=== PATIENT | female | born 1980 | race Caucasian/White ===

== ENCOUNTER 2018-03-26 19:38 | Emergency (ER) | payer MEDICAID, OTHER ==
[~2018-03-26] VITALS: Ht 160 cm; Wt 99.8 kg
[~2018-03-26 19:38] MED LIST: SYN.075
[2018-03-26 19:44] VITALS: BP 143/80
--- NOTE | 2018-03-26 19:49 | NUR ---
pt ambulated to bed 11 with vss. providing urine.
--- NOTE | 2018-03-26 19:58 | NUR ---
PT TO ED WITH C/O L THUMB PAIN AND SWELLING. PT DENIES INJURY OR TRAUMA TO THUMB. 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 PT PLACED INTO BED, PENDING MD MENDOZA. PMH--DENIES RX--DENIES
--- NOTE | 2018-03-26 20:03 | NUR ---
RAD AT BEDSIDE.
[2018-03-26] MEDS ORDERED: IBUPROFEN 600 MG TAB PO ONE (20:10)
--- NOTE | 2018-03-26 21:05 | NUR ---
Patient discharged with v/s stable. Written and verbal after care instructions given and explained. Patient alert, oriented and verbalized understanding of instructions. Ambulatory with steady gait. All questions addressed prior to discharge. ID band removed. Patient advised to follow up with PMD. Rx of KEFLEX, IBUPROFEN given. Patient educated on indication of medication including possible reaction and side effects. Opportunity to ask questions provided and answered.
[2018-03-26 21:09] VITALS: BP 139/74
== END 2018-03-26 21:05 | disposition home or self-care (01) ==
LOC: MED 19:38
DX: S63.602A Unspecified sprain of left thumb, initial encounter (principal); E07.9 Disorder of thyroid, unspecified; Z79.899 Other long term (current) drug therapy; X58.XXXA Exposure to other specified factors, initial encounter; Y93.89 Activity, other specified; Y92.89 Other specified places as the place of occurrence of the external cause; Y99.8 Other external cause status
CPT/HCPCS: 73130; 81025; 99283; Q0092

== ENCOUNTER 2020-06-13 18:33 | Emergency (ER) | payer OTHER ==
[~2020-06-13] VITALS: Ht 162.6 cm; Wt 96.2 kg
[2020-06-13 18:39] VITALS: BP 140/83
--- NOTE | 2020-06-13 18:44 | NUR ---
Pt ambulated to ER bed 9.
--- NOTE | 2020-06-13 18:52 | NUR ---
40 Y/O FEMALE C/O VAGINAL/PELVIC PAIN 11/02 DESCRIBES PRESSURE AND CRAMPING RADIATING TO LEFT FLANK X5DAYS. BRUISING NOTED TO LEFT FLANK. PT STATES SHE HAD APPOINTMENT AT [facility] IN [place] FOR PAP SMEAR AND THE DOCTOR STATED HE COULD NOT FIND HER CERVIX. PT STATES HE CONTINUED TO CHANGE HIS SPECULUMS TO DIFFERENT SIZES AND SINCE THEN HAS HAD INCREASED PAIN. PT STATES WHEN HAVING A BOWEL MOVEMENT PAIN IS WORSE AND HAS NOTICED BILATERAL FEET SWELLING NON-PITTING +1. PT DENIES N/V, DENIES FEVER/CHILLS. DENIES PMH NKA
--- NOTE | 2020-06-13 19:01 | NUR ---
Dr. Rosenthal at pt bedside for further evaluation.
--- NOTE | 2020-06-13 19:08 | NUR ---
Gave report to NICOLE Maier and NICOLE Craig. Transfer of care at this time.
--- NOTE | 2020-06-13 19:09 | NUR ---
RECEIVED REPORT FROM NICOLE MORA FOR CONTINUITY OF CARE
--- NOTE | 2020-06-13 19:10 | NUR ---
Patient appears to be resting comfortably in bed. Vital Signs within normal limits. Respirations even and unlabored. AOx4, sitting semi fowlers, and trace ble. pt is okay with motrin for pain; md notified.
[2020-06-13] MEDS ORDERED: IBUPROFEN 600 MG TAB PO ONE (19:15)
--- NOTE | 2020-06-13 19:35 | NUR ---
blood handed to kailee bella
[2020-06-13 19:43] LABS: BASOPHILS % (AUTO) 0.3 % (0.0-2.0); EOSINOPHILS # (AUTO) 0.2 K/uL (0-0.4); EOSINOPHILS % (AUTO) 1.6 % (0.0-4.0); HEMATOCRIT 36.2 % (36-48); HEMOGLOBIN 12.2 g/dL (12.0-16.0); LYMPHOCYTES # (AUTO) 3.4 K/uL (2.5-16.5); LYMPHOCYTES % (AUTO) 33.2 % (20.5-51.1); MEAN CORPUSCULAR HEMOGLOBIN 30 pg (27-31); MEAN CORPUSCULAR HGB CONC 34 g/dL (33-37); MEAN CORPUSCULAR VOLUME 88.5 fL (80-94); MONOCYTES # (AUTO) 0.7 K/uL (0.8-1.0); MONOCYTES % (AUTO) 7.2 % (1.7-9.3); NEUTROPHILS # (AUTO) 5.9 K/uL (1.8-7.7); NEUTROPHILS % (AUTO) 57.7 % (42.2-75.2); PLATELET COUNT (AUTO) 84 K/uL (140-450); RED BLOOD CELL COUNT(AUTO) 4.09 MIL/uL (4.20-5.40); RED CELL DISTRIBUTION WIDTH 13.3 % (11.6-13.7); WHITE BLOOD COUNT (AUTO) 10.2 K/uL (4.8-10.8)
[2020-06-13 19:58] LABS: ALBUMIN 3.9 g/dL (3.4-5.0); ANION GAP 7.5 (8-16); CARBON DIOXIDE 31.9 mmol/L (21-32); CREATININE 0.7 mg/dL (0.6-1.3); POTASSIUM 3.4 mmol/L (3.5-5.1); TOTAL BILIRUBIN 0.5 mg/dL (0.0-1.0)
--- NOTE | 2020-06-13 20:04 | NUR ---
Ultrasound at bedside.
--- NOTE | 2020-06-13 20:22 | NUR ---
PT BACK FROM CT
[2020-06-13 20:28] VITALS: BP 134/84
--- NOTE | 2020-06-13 21:15 | NUR ---
Patient discharged with v/s stable. Written and verbal after care instructions given and explained. Patient verbalized understanding. ID band removed. Ambulatory with steady gait. All questions addressed prior to discharge. Advised to follow up with PMD.
== END 2020-06-13 21:15 | disposition home or self-care (01) ==
LOC: MED 18:33
DX: K80.20 Calculus of gallbladder without cholecystitis without obstruction (principal); R10.2 Pelvic and perineal pain; E07.9 Disorder of thyroid, unspecified; Z79.899 Other long term (current) drug therapy
CPT/HCPCS: 36415; 80053; 81002; 81025; 85025; 93970; 99285

== ENCOUNTER 2020-10-19 19:23 | Emergency (ER) | payer OTHER ==
[~2020-10-19] VITALS: Ht 162.6 cm; Wt 90.7 kg
[2020-10-19 19:30] VITALS: BP 112/67
--- NOTE | 2020-10-19 19:30 | NUR ---
TO BED AMBULATORY
[2020-10-19] MEDS ORDERED: KETOROLAC 60 MG/2 ML VIAL IM ONE (19:50)
--- NOTE | 2020-10-19 19:55 | NUR ---
40 YO/F BIB SELF W C/O HEAD AND NECK PAIN THROBBING AND HEAVY 9/10 AND STIFF NECK S/P FALL X12 HOURS AGO. PATIENT REPORTS HER ABDOMEN BEGAN TO HAVE A BURNING PAIN TO LUQ W NAUSEA AND VOMITING AND AFTER VOMITING PATIENT GOT DIZZY, VISION WENT BLACK AND PATIENT FAINTED AND FELL LANDING ON HER L SIDE W LOC. PATIENT WAS AWAKEN BY HER CHILDREN AND ALSO REPORTS PAIN TO L BUTTOCKS, L WRIST, AND L KNEE. PATIENT REPORTS ABDOMINAL PAIN P0FCHAUR W FEW EPISODES OF DIARRHEA. PATIENT REPORTS SOME NAUSEA AT THIS TIME, DENIES BLURRY VISION. PATIENT IS AOX4, GCS 15, PERRL, LUNG SOUNDS CLEAR, BREATHING EVEN AND UNLABORED. CONNECTED TO MONITOR W VSS. PATIENT LAYING IN BED, HOB SLIGHTLY ELEVATED, BED LOCKED IN LOWEST POSITION, X2 SIDE RAILS UP FOR PATIENT SAFETY. NAD NOTED, WILL CONTINUE TO MONITOR. PMH:DENIES NKA
--- NOTE | 2020-10-19 20:13 | NUR ---
PATIENT TAKEN TO CT VIA GURNEY.
--- NOTE | 2020-10-19 20:36 | NUR ---
PATIENT REPORTS PAIN IMPROVEMENT TO BUTTOCKS, KNEE, WRIST, HEAD AND NECK. PATIENT REPORTS ONGOING NECK STIFFNESS.
--- NOTE | 2020-10-19 21:28 | NUR ---
VINCENT WRAP PROVIDED TO PATIENT L WRIST AND L KNEE, PER ERMD ORDER.
[2020-10-19] MEDS ORDERED: FAMO-92 PO (21:40)
[2020-10-19] MEDS ORDERED: ACET-10509 PO (21:40)
[2020-10-19 21:50] VITALS: BP 116/57
--- NOTE | 2020-10-19 21:50 | NUR ---
Patient discharged with v/s stable BY . Written and verbal after care instructions given and explained BY . Patient alert, oriented and verbalized understanding of instructions. Ambulatory with steady gait. All questions addressed prior to discharge BY . ID band removed. Patient advised to follow up with PMD BY . Rx of ACETAMINOPHEN, FAMOTIDINE given BY . Patient educated on indication of medication including possible reaction and side effects BY . Opportunity to ask questions provided and answered BY .
== END 2020-10-19 21:50 | disposition home or self-care (01) ==
LOC: MED 19:23
DX: S06.0X0A Concussion without loss of consciousness, initial encounter (principal); S63.592A Other specified sprain of left wrist, initial encounter; S83.8X2A Sprain of other specified parts of left knee, initial encounter; S13.8XXA Sprain of joints and ligaments of other parts of neck, initial encounter; K27.9 Peptic ulcer, site unspecified, unspecified as acute or chronic, without hemorrhage or perforation; W18.39XA Other fall on same level, initial encounter; Y93.89 Activity, other specified; Y92.89 Other specified places as the place of occurrence of the external cause; Y99.8 Other external cause status
CPT/HCPCS: 70450; 70490; 73110; 73562; 96372; 99285; J1885

== ENCOUNTER 2020-12-02 20:40 | Emergency (ER) | payer OTHER ==
[~2020-12-02] VITALS: Ht 162.6 cm; Wt 88.5 kg
[~2020-12-02 20:40] MED LIST changes: +ACET-10509 PO; +FAMO-92 PO
[2020-12-02 20:44] VITALS: BP 137/75
--- NOTE | 2020-12-02 20:48 | NUR ---
PT SENT TO LOBBY
[2020-12-02] MEDS ORDERED: FAMOTIDINE 20 MG TAB PO ONE (20:50)
[2020-12-02] MEDS ORDERED: ACETAMINOPHEN EXTRA STRENGTH 500 MG TAB PO ONE (20:50)
[2020-12-02] MEDS ORDERED: DICYCLOMINE HCL LIQUID 20 MG, ALUMINUM HYD/MAG/SIMETHICONE 30 ML, LIDOCAINE VISCOUS 2% ... PO ONE ×3 (20:50)
[2020-12-02] MEDS ORDERED: ONDANSETRON 4 MG ODT PO ONE (20:50)
[2020-12-02] MEDS ORDERED: DICYCLOMINE HCL LIQUID 10 MG/5 ML UDC ONE (20:52)
[2020-12-02] MEDS ORDERED: ALUMINUM HYD/MAG/SIMETHICONE 30 ML UDC ONE (20:52)
[2020-12-02 21:08] LABS: BASOPHILS % (AUTO) 0.2 % (0.0-2.0); EOSINOPHILS % (AUTO) 0.2 % (0.0-4.0); HEMATOCRIT 36.5 % (36-48); LYMPHOCYTES # (AUTO) 2.5 K/uL (2.5-16.5); LYMPHOCYTES % (AUTO) 15.3 % (20.5-51.1); MEAN CORPUSCULAR HEMOGLOBIN 29 pg (27-31); MEAN CORPUSCULAR HGB CONC 33 g/dL (33-37); MEAN CORPUSCULAR VOLUME 86.6 fL (80-94); MONOCYTES # (AUTO) 0.7 K/uL (0.8-1.0); MONOCYTES % (AUTO) 4.5 % (1.7-9.3); NEUTROPHILS # (AUTO) 12.8 K/uL (1.8-7.7); NEUTROPHILS % (AUTO) 79.8 % (42.2-75.2); PLATELET COUNT (AUTO) 241 K/uL (140-450); RED BLOOD CELL COUNT(AUTO) 4.21 MIL/uL (4.20-5.40); RED CELL DISTRIBUTION WIDTH 13.8 % (11.6-13.7); WHITE BLOOD COUNT (AUTO) 16.1 K/uL (4.8-10.8)
[2020-12-02 21:22] LABS: ALBUMIN 3.8 g/dL (3.4-5.0); ANION GAP 11.9 (8-16); CARBON DIOXIDE 31.1 mmol/L (21-32); CREATININE 0.8 mg/dL (0.6-1.3)
[2020-12-02] MEDS ORDERED: MORPHINE SULFATE 2 MG/ML SYR IM ONE (21:45)
[2020-12-02] MEDS ORDERED: KETOROLAC 30 MG/ML VIAL IM ONE (21:45)
[2020-12-02] MEDS ORDERED: MAG355OR2 PO (21:48)
[2020-12-02] MEDS ORDERED: ONDA-24 PO (21:48)
[2020-12-02] MEDS ORDERED: FAMO-90 PO (21:48)
--- NOTE | 2020-12-02 21:48 | NUR ---
PT TAKEN TO BED 10
--- NOTE | 2020-12-02 22:00 | NUR ---
ULTRASOUND AT BEDSIDE
--- NOTE | 2020-12-02 22:23 | NUR ---
40 YO/F BIB SELF W C/O LOWER ABDOMIBAL PAIN 9/10 SHARP, NON-RADIATING, CONSTANT X3 HOURS. PATIENT REPORTS PAIN BEGAN SHORTLY AFTER EATING FRUIT. PATIENT DENIES ANY N/V/D, FEVERS, CONSTIPATION, CHEST PAIN OR SOB. BOWEL SOUNDS PRESENT, ABDOMEN SOFT AND TENDER TO TOUCH. PATIENT LAYING SUPINE IN BED LOCKED IN LOWEST POSITION W X1 SIDERAIL UP. BLANKET ON. BREATHING EVEN AND UNLABORED. NAD NOTED, WILL CONTINUE TO MONITOR. VSS PMH:DENIES NKA
--- NOTE | 2020-12-02 23:53 | NUR ---
Dr. Tavarez examining patient.
[2020-12-03] VITALS: BP 124/73
--- NOTE | 2020-12-03 | NUR ---
Patient discharged with v/s stable. Written and verbal after care instructions given and explained. Patient alert, oriented and verbalized understanding of instructions. Ambulatory with steady gait. All questions addressed prior to discharge. ID band removed. Patient advised to follow up with PMD. Rx of PEPCID, MAG HYDROX, ZOFRAN given. Patient educated on indication of medication including possible reaction and side effects. Opportunity to ask questions provided and answered.
== END 2020-12-03 | disposition home or self-care (01) ==
LOC: MED 20:40
DX: K29.70 Gastritis, unspecified, without bleeding (principal); R11.0 Nausea; E07.9 Disorder of thyroid, unspecified; Z79.899 Other long term (current) drug therapy
CPT/HCPCS: 36415; 76705; 80053; 81025; 83690; 85025; 96372; 99284; J1885; J2270; Q0092; Q0162

== ENCOUNTER 2021-01-18 19:25 | Emergency (ER) | payer OTHER ==
[~2021-01-18] VITALS: Ht 162.6 cm; Wt 85.7 kg
[2021-01-18 19:25] VITALS: BP 109/74
[~2021-01-18 19:25] MED LIST changes: +FAMO-90 PO; +MAG355OR2 PO; +ONDA-188 PO
--- NOTE | 2021-01-18 19:26 | NUR ---
PT TAKEN TO BED 4 VIA EMS
--- NOTE | 2021-01-18 19:40 | NUR ---
ASHLEY DESIR AT BEDSIDE FOR EXAMINATION
[2021-01-18] MEDS ORDERED: MORPHINE SULFATE 4 MG/ML SYR IVP ONE (19:50)
[2021-01-18] MEDS ORDERED: ONDANSETRON 4 MG/2 ML VIAL IVP ONE (19:50)
[2021-01-18 20:26] LABS: BASOPHILS % (AUTO) 0.1 % (0.0-2.0); EOSINOPHILS % (AUTO) 0.1 % (0.0-4.0); HEMATOCRIT 38.7 % (36-48); HEMOGLOBIN 13.1 g/dL (12.0-16.0); LYMPHOCYTES # (AUTO) 1.3 K/uL (2.5-16.5); LYMPHOCYTES % (AUTO) 8.2 % (20.5-51.1); MEAN CORPUSCULAR HEMOGLOBIN 28 pg (27-31); MEAN CORPUSCULAR HGB CONC 34 g/dL (33-37); MEAN CORPUSCULAR VOLUME 83.9 fL (80-94); MONOCYTES # (AUTO) 0.8 K/uL (0.8-1.0); MONOCYTES % (AUTO) 5.3 % (1.7-9.3); NEUTROPHILS # (AUTO) 13.8 K/uL (1.8-7.7); NEUTROPHILS % (AUTO) 86.3 % (42.2-75.2); PLATELET COUNT (AUTO) 258 K/uL (140-450); RED BLOOD CELL COUNT(AUTO) 4.62 MIL/uL (4.20-5.40)
--- NOTE | 2021-01-18 20:41 | NUR ---
patient ambulated to the bathroom with a steady gait. patient unhooked from monitors
[2021-01-18 20:44] LABS: ALBUMIN 3.8 g/dL (3.4-5.0); ANION GAP 11.2 (8-16); CREATININE 0.9 mg/dL (0.6-1.3); POTASSIUM 4.2 mmol/L (3.5-5.1); TOTAL BILIRUBIN 1.1 mg/dL (0.0-1.0)
--- NOTE | 2021-01-18 21:02 | NUR ---
patient to CT
--- NOTE | 2021-01-18 21:18 | NUR ---
PT RETURN FROM CT
[2021-01-18 21:23] LABS: APPEARANCE,URINE CLEAR (CLEAR); BILIRUBIN,URINE NEGATIVE (NEGATIVE); BLOOD, URINE NEGATIVE (NEGATIVE); COLOR,URINE AMBER (YELLOW); LEUKOCYTE ESTERASE ,URINE NEGATIVE (NEGATIVE); NITRITE, URINE NEGATIVE (NEGATIVE); UGLUCOSE NEGATIVE (NEGATIVE)
--- NOTE | 2021-01-18 21:33 | NUR ---
patient daughter called about updates. informed daughter and would like to come in.
--- NOTE | 2021-01-18 23:37 | NUR ---
IV removed, catheter intact and site benign. Applied folded 4x4 gauze and tape to stop bleeding.
[2021-01-19] VITALS: BP 108/70
--- NOTE | 2021-01-19 | NUR ---
Patient discharged with v/s stable. Written and verbal after care instructions given and explained. Patient verbalized understanding. Ambulatory with steady gait. ID band removed. All questions addressed prior to discharge. Advised to follow up with PMD.
== END 2021-01-19 | disposition home or self-care (01) ==
LOC: MED 19:25
DX: R55 Syncope and collapse (principal); E86.0 Dehydration; E07.9 Disorder of thyroid, unspecified; Z79.899 Other long term (current) drug therapy
CPT/HCPCS: 36415; 70450; 71045; 72125; 80053; 81003; 83690; 84484; 84703; 85025; 93005; 96374; 96375; 99285; J2270; J2405; Q0092

== ENCOUNTER 2021-04-07 19:25 | Emergency (ER) | payer OTHER ==
[~2021-04-07] VITALS: Ht 162.6 cm; Wt 85.3 kg
[2021-04-07 19:35] VITALS: BP 134/70
--- NOTE | 2021-04-07 19:35 | NUR ---
TO BED AMBULATORY
[2021-04-07] MEDS ORDERED: NACL 0.9% 1,000 ML IV ONE (19:55)
[2021-04-07] MEDS ORDERED: ONDANSETRON 4 MG/2 ML VIAL IVP ONE (19:55)
[2021-04-07] MEDS ORDERED: KETOROLAC 15 MG/ML VIAL IVP ONE (20:10)
--- NOTE | 2021-04-07 20:12 | NUR ---
joe singh at bedside for ultrasound
[2021-04-07 20:26] LABS: HEMOGLOBIN 12.7 g/dL (12.0-16.0); MONOCYTES # (AUTO) 0.4 K/uL (0.8-1.0); NEUTROPHILS # (AUTO) 10.3 K/uL (1.8-7.7); RED CELL DISTRIBUTION WIDTH 14.6 % (11.6-13.7)
[2021-04-07 20:30] LABS: BASOPHILS % (AUTO) 0.2 % (0.0-2.0); EOSINOPHILS % (AUTO) 0.1 % (0.0-4.0); HEMATOCRIT 37.6 % (36-48); LYMPHOCYTES % (AUTO) 8.8 % (20.5-51.1); MEAN CORPUSCULAR HEMOGLOBIN 28 pg (27-31); MEAN CORPUSCULAR HGB CONC 34 g/dL (33-37); MEAN CORPUSCULAR VOLUME 83.5 fL (80-94); MONOCYTES % (AUTO) 3.3 % (1.7-9.3); NEUTROPHILS % (AUTO) 87.6 % (42.2-75.2); PLATELET COUNT (AUTO) 286 K/uL (140-450); RED BLOOD CELL COUNT(AUTO) 4.51 MIL/uL (4.20-5.40); WHITE BLOOD COUNT (AUTO) 11.8 K/uL (4.8-10.8)
[2021-04-07 20:36] LABS: ANION GAP 12.1 (8-16); CREATININE 0.7 mg/dL (0.6-1.3); POTASSIUM 4.1 mmol/L (3.5-5.1)
[2021-04-07 20:39] LABS: ALBUMIN 4.1 g/dL (3.4-5.0); BILIRUBIN,DIRECT 0.1 mg/dL (0.0-0.3)
--- NOTE | 2021-04-07 21:15 | NUR ---
40 Y/O F BIB SELF FOR RUQ PAIN X1 DAY AND NAUSEA AND VOMITING ALL DAY. PT DENIES DIARRHEA OR BLOOD IN EMESIS. PT C/O ABD PAIN 11/02. PT DID NOT TAKE ANY RX. PT HAS A HX OF GALLSTONES AND WAS TOLD THAT SHE WILL UNDERGO SUREGERY TO REMOVE IT. PT DENIES F/C/SOB/D. PT IS FULL VACCINATED WITH BOOSTER. PT ALSO C/O JOINT PAIN THROUGHOUT THE BODY. PT HAS HX OF TELLEZ AND THYROID DISORDER. ALLERGIES: NONE
--- NOTE | 2021-04-07 21:23 | NUR ---
patient ambulated to the bathroom for urine collection
[2021-04-08] MEDS ORDERED: FAMO-90 PO (00:21)
[2021-04-08 00:47] VITALS: BP 100/60
--- NOTE | 2021-04-08 00:47 | NUR ---
Patient discharged with v/s stable. Written and verbal after care instructions given and explained. Patient alert, oriented and verbalized understanding of instructions. Ambulatory with steady gait. All questions addressed prior to discharge. ID band removed. Patient advised to follow up with PMD. Rx of PEPCID given. Opportunity to ask questions provided and answered.
--- NOTE | 2021-04-08 01:00 | NUR ---
The patient's care was reviewed and supervised by Rebekah Riojas RN.
== END 2021-04-08 00:47 | disposition home or self-care (01) ==
LOC: MED 19:25
DX: K80.20 Calculus of gallbladder without cholecystitis without obstruction (principal); R11.2 Nausea with vomiting, unspecified; R51.9 Headache, unspecified; E07.9 Disorder of thyroid, unspecified; Z79.899 Other long term (current) drug therapy
CPT/HCPCS: 76705; 80048; 80076; 81002; 81025; 83690; 85025; 86803; 93005; 96361; 96374; 96375; 99285; J1885; J2405; J7030; Q0092

== ENCOUNTER 2021-11-04 15:18 | Emergency (ER) | payer OTHER ==
[~2021-11-04] VITALS: Ht 162.6 cm; Wt 83.9 kg
[~2021-11-04 15:18] MED LIST changes: -ACET-10509 PO; +ACET-1182 PO; -FAMO-92 PO; -MAG355OR2 PO; +TRAM50TA1 PO
[2021-11-04 15:39] VITALS: BP 125/73
--- NOTE | 2021-11-04 15:40 | NUR ---
41 y/o female, pt states she was admitted to the hospital here for gallstones and released 10/25. pt states she has not been able to eat due to long npo diet in hospital. unable to tolerate liquid/solids. a&ox4, ambulates with even and steady gait. pt states she feels generalized weakness and fatigue. denies pain at this time. pmh: gallstones nka med: omeprazole, pepcid
[2021-11-04 16:35] LABS: BASOPHILS % (AUTO) 0.3 % (0.0-2.0); EOSINOPHILS # (AUTO) 0.1 K/uL (0-0.4); EOSINOPHILS % (AUTO) 1.3 % (0.0-4.0); HEMATOCRIT 35.8 % (36-48); LYMPHOCYTES # (AUTO) 2.3 K/uL (2.5-16.5); LYMPHOCYTES % (AUTO) 27.9 % (20.5-51.1); MEAN CORPUSCULAR HEMOGLOBIN 28 pg (27-31); MEAN CORPUSCULAR HGB CONC 34 g/dL (33-37); MEAN CORPUSCULAR VOLUME 83.5 fL (80-94); MONOCYTES # (AUTO) 0.5 K/uL (0.8-1.0); MONOCYTES % (AUTO) 6.4 % (1.7-9.3); NEUTROPHILS # (AUTO) 5.3 K/uL (1.8-7.7); NEUTROPHILS % (AUTO) 64.1 % (42.2-75.2); PLATELET COUNT (AUTO) 418 K/uL (140-450); RED BLOOD CELL COUNT(AUTO) 4.29 MIL/uL (4.20-5.40); RED CELL DISTRIBUTION WIDTH 14.5 % (11.6-13.7); WHITE BLOOD COUNT (AUTO) 8.3 K/uL (4.8-10.8)
[2021-11-04 16:57] LABS: ALBUMIN 2.9 g/dL (3.4-5.0); ANION GAP 9.6 (8-16); CARBON DIOXIDE 31.3 mmol/L (21-32); CREATININE 0.8 mg/dL (0.6-1.3); POTASSIUM 3.9 mmol/L (3.5-5.1); TOTAL BILIRUBIN 0.7 mg/dL (0.0-1.0)
--- NOTE | 2021-11-04 17:48 | NUR ---
PT AMBULATED TO BED 09.
[2021-11-04] MEDS ORDERED: KETOROLAC 60 MG/2 ML VIAL IM ONE (18:20)
--- NOTE | 2021-11-04 18:37 | NUR ---
41/F PRESENTS TO ED WITH C/O ABDOMINAL PAIN AND BLOATING AND DECREASED APPETITE X3 WEEKS. PATIENT REPORTS TAKING NORCO AND OMEPRAZOLE WITH NO RELIEF, DENIES N/V/D, DENIES URINARY SYMPTOMS OR RECENT FEVERS.
--- NOTE | 2021-11-04 19:21 | NUR ---
Pt report given to NICOLE MADRIGAL. Transfer of care at this time.
[2021-11-04] MEDS ORDERED: DICYCLOMINE HCL LIQUID 20 MG, ALUMINUM HYD/MAG/SIMETHICONE 30 ML, LIDOCAINE VISCOUS 2% ... PO ONE ×3 (19:35)
[2021-11-04] MEDS ORDERED: DICYCLOMINE HCL LIQUID 10 MG/5 ML UDC ONE (19:37)
[2021-11-04] MEDS ORDERED: ALUMINUM HYD/MAG/SIMETHICONE 30 ML UDC ONE (19:37)
[2021-11-04] MEDS ORDERED: MAG-27 PO (20:38)
[2021-11-04 20:45] VITALS: BP 107/71
--- NOTE | 2021-11-04 20:45 | NUR ---
Patient discharged with v/s stable and with pain improvement. Written and verbal after care instructions given and explained. Patient alert, oriented and verbalized understanding of instructions. Ambulatory with steady gait. All questions addressed prior to discharge. ID band removed. Patient advised to follow up with PMD. Patient educated on indication of medication including possible reaction and side effects. Opportunity to ask questions provided and answered.
== END 2021-11-04 20:45 | disposition home or self-care (01) ==
LOC: MED 15:18
DX: R10.13 Epigastric pain (principal); Z86.39 Personal history of other endocrine, nutritional and metabolic disease; Z79.899 Other long term (current) drug therapy; Z79.891 Long term (current) use of opiate analgesic
CPT/HCPCS: 36415; 74176; 80053; 81002; 81025; 83690; 85025; 96372; 99284; J1885

== ENCOUNTER 2021-11-18 08:57 | Emergency (ER) | payer OTHER ==
[~2021-11-18] VITALS: Ht 162.6 cm; Wt 79.4 kg
[~2021-11-18 08:57] MED LIST changes: +MAG-27 PO
[2021-11-18 09:48] VITALS: BP 142/78
--- NOTE | 2021-11-18 09:48 | NUR ---
41 y/o Female BIB family for 12/02 abd pain for 1 month. Pt states she has a sx scheduled for 11/26 to have her gallbladder removed. Pt states that she is ahaving coffee ground emesis x 3. Pt also endorses Diarrhea without blood. AOX4, GCS15. Able to ambulate freely. Pmhx: Gallstones NKA
[2021-11-18] MEDS ORDERED: NACL 0.9% 1,000 ML IV ONE ×2 (10:00→12:05)
[2021-11-18] MEDS ORDERED: MORPHINE SULFATE 4 MG/ML SYR IVP ONE (10:00)
[2021-11-18] MEDS ORDERED: ONDANSETRON 4 MG/2 ML VIAL IVP ONE (10:00)
--- NOTE | 2021-11-18 10:00 | NUR ---
Pt states she gets cramps with morphine/zofran and would just like fluids. ERMD made aware
--- NOTE | 2021-11-18 10:12 | NUR ---
Teach at bedside to perform EKG
[2021-11-18 10:20] LABS: APPEARANCE,URINE CLEAR (CLEAR); BILIRUBIN,URINE 2+ (NEGATIVE); BLOOD, URINE NEGATIVE (NEGATIVE); COLOR,URINE YELLOW (YELLOW); LEUKOCYTE ESTERASE ,URINE TRACE (NEGATIVE); NITRITE, URINE NEGATIVE (NEGATIVE); UGLUCOSE NEGATIVE (NEGATIVE)
[2021-11-18 10:30] LABS: BASOPHILS % (AUTO) 0.3 % (0.0-2.0); EOSINOPHILS # (AUTO) 0.1 K/uL (0-0.4); EOSINOPHILS % (AUTO) 1.1 % (0.0-4.0); HEMATOCRIT 38.2 % (36-48); HEMOGLOBIN 12.6 g/dL (12.0-16.0); LYMPHOCYTES # (AUTO) 2.1 K/uL (2.5-16.5); LYMPHOCYTES % (AUTO) 21.8 % (20.5-51.1); MEAN CORPUSCULAR HEMOGLOBIN 28 pg (27-31); MEAN CORPUSCULAR HGB CONC 33 g/dL (33-37); MEAN CORPUSCULAR VOLUME 84.2 fL (80-94); MONOCYTES # (AUTO) 0.8 K/uL (0.8-1.0); MONOCYTES % (AUTO) 8.3 % (1.7-9.3); NEUTROPHILS # (AUTO) 6.6 K/uL (1.8-7.7); NEUTROPHILS % (AUTO) 68.5 % (42.2-75.2); PLATELET COUNT (AUTO) 323 K/uL (140-450); RED BLOOD CELL COUNT(AUTO) 4.53 MIL/uL (4.20-5.40); RED CELL DISTRIBUTION WIDTH 14.3 % (11.6-13.7); WHITE BLOOD COUNT (AUTO) 9.6 K/uL (4.8-10.8)
[2021-11-18 10:47] LABS: RBC,URINE 0-5 /HPF (0-5); WBC,URINE 0-5 /HPF (0-5)
[2021-11-18 10:48] LABS: OTHER CASTS, URINE None Seen /LPF (None Seen)
[2021-11-18 11:04] LABS: ALBUMIN 3.1 g/dL (3.4-5.0); ANION GAP 15.6 (8-16); CARBON DIOXIDE 25.9 mmol/L (21-32); CHLORIDE 100 mmol/L (98-107); CREATININE 0.7 mg/dL (0.6-1.3); GFR ARICAN-AMERICAN 118 mL/min (>90); GLUCOSE 81 mg/dL (74-106); POTASSIUM 3.5 mmol/L (3.5-5.1); TOTAL BILIRUBIN 0.8 mg/dL (0.0-1.0); UREA NITROGEN, BLOOD 16 mg/dL (7-18)
[2021-11-18 11:05] LABS: SODIUM SERUM 138 mmol/L (136-145)
[2021-11-18] MEDS ORDERED: IBUP-2213 PO (11:10)
[2021-11-18] MEDS ORDERED: AMOX1TAB8 PO (11:10)
[2021-11-18] MEDS ORDERED: ONDA-188 PO (11:11)
[2021-11-18 11:35] LABS: ASPARTATE AMINOTRANSFERASE 29 U/L (15-37)
--- NOTE | 2021-11-18 11:47 | NUR ---
per lab, pt negative
--- NOTE | 2021-11-18 12:30 | NUR ---
Pt remains stable. AOX4, denies any N/V/D at this time. Update given on care and all safety measures in place.
[2021-11-18 13:22] VITALS: BP 142/78
--- NOTE | 2021-11-18 13:23 | NUR ---
Patient discharged with v/s stable. Written and verbal after care instructions given and explained. Patient alert, oriented and verbalized understanding of instructions. Ambulatory with steady gait. All questions addressed prior to discharge. ID band removed. Patient advised to follow up with PMD. Rx of ibuprofen, amoxicillin, ondansetron (sent) given. Patient educated on indication of medication including possible reaction and side effects. Opportunity to ask questions provided and answered.
== END 2021-11-18 13:22 | disposition home or self-care (01) ==
LOC: MED 08:57
DX: K52.9 Noninfective gastroenteritis and colitis, unspecified (principal); E07.9 Disorder of thyroid, unspecified; Z79.899 Other long term (current) drug therapy
CPT/HCPCS: 36415; 71045; 74176; 80053; 81001; 81025; 84484; 84702; 85025; 87086; 93005; 96360; 96361; 99285; J7030

== ENCOUNTER 2021-11-26 07:05 | Day surgery (SDC) | payer OTHER ==
[~2021-11-26] VITALS: Ht 162.6 cm; Wt 85.7 kg
[~2021-11-26 07:05] MED LIST changes: +AMOX1TAB8 PO; +IBUP-2213 PO
[2021-11-26] MEDS ORDERED: BUPIVACAINE-MPF 0.25% 30 ML VIAL INJ ONE (09:13)
[2021-11-26] MEDS ORDERED: LIDOCAINE/EPI MPF 1%1:200000 30 ML VIAL INJ ONE (09:13)
[2021-11-26] MEDS ORDERED: SEVOFLURANE 250 ML BTL INH ONE (09:56)
[2021-11-26] MEDS ORDERED: fentaNYL citrate 0.05 MG/ML VIAL ONE (10:04)
[2021-11-26] MEDS ORDERED: ROCURONIUM 50 MG/5 ML VIAL IV ONE (10:36)
[2021-11-26] MEDS ORDERED: ONDANSETRON 4 MG/2 ML VIAL ONE (10:36)
[2021-11-26] MEDS ORDERED: KETOROLAC 30 MG/ML VIAL ONE (10:36)
[2021-11-26] MEDS ORDERED: ceFAZolin 1,000 MG VIAL ONE (10:37)
[2021-11-26] MEDS ORDERED: GLYCOPYRROLATE 0.2 MG/ML VIAL ONE ×3 (11:40)
[2021-11-26] MEDS ORDERED: NEOSTIGMINE 1:1000 10 MG/10 ML VIAL ONE (11:40)
[2021-11-26] MEDS ORDERED: LACTATED RINGERS 1,000 ML IV SCH (11:55)
[2021-11-26] MEDS: HYDROmorphone 1 MG/ML AMP IVP PRN ×4 (11:55→12:25)
[2021-11-26] MEDS ORDERED: HYDROmorphone PFS 2 MG/ML SYR ONE (11:58)
[2021-11-26] MEDS ORDERED: METOCLOPRAMIDE 10 MG/2 ML INJ VIAL IVP PRN (12:53)
[2021-11-26] MEDS ORDERED: hydrALAZINE 20 MG/ML VIAL IVP PRN (12:53)
[2021-11-26] MEDS ORDERED: LABETALOL 20 MG/4 ML VIAL IVP PRN (12:53)
== END 2021-11-26 16:04 | disposition home or self-care (01) ==
LOC: MDS 07:05 → MMU 07:05 → MDS 16:04
PROVIDERS: ATTEND Surgery
DX: K80.10 Calculus of gallbladder with chronic cholecystitis without obstruction (principal); Z20.822 Contact with and (suspected) exposure to COVID-19
CPT/HCPCS: 36415; 47562; 71045; 82374; 86886; 86900; 86901; 87426; 93005; C1887; J0690; J1170; J1885; J2001; J2405; J2710; J3010; J3490; J7030; J7060

== ENCOUNTER 2022-02-06 07:58 | Day surgery (SDC) | payer OTHER ==
[~2022-02-06] VITALS: Ht 162.6 cm; Wt 77.1 kg
[~2022-02-06 07:58] MED LIST changes: +TRAM-748 PO; -TRAM50TA1 PO
[2022-02-06] MEDS ORDERED: MIDAZOLAM 5 MG/5 ML VIAL ONE (08:34)
[2022-02-06] MEDS ORDERED: fentaNYL citrate 0.05 MG/ML VIAL ONE (08:34)
[2022-02-06] MEDS ORDERED: LIDOCAINE 2% 100 MG/5 ML UJET TP ONE (08:40)
[2022-02-06] MEDS ORDERED: fentaNYL citrate 0.05 MG/ML VIAL IVP ONE (09:35)
[2022-02-06] MEDS ORDERED: MIDAZOLAM 2 MG/2 ML VIAL IVP ONE (09:35)
== END 2022-02-06 10:55 | disposition home or self-care (01) ==
LOC: MDS 07:58 → MMU 07:59 → MDS 10:55
PROVIDERS: ATTEND Surgery
DX: K59.09 Other constipation (principal); K56.699 Other intestinal obstruction unspecified as to partial versus complete obstruction; K80.20 Calculus of gallbladder without cholecystitis without obstruction; R10.10 Upper abdominal pain, unspecified; Z20.822 Contact with and (suspected) exposure to COVID-19
CPT/HCPCS: 45380; 87426; 88305; J2250; J3010; J7030

== ENCOUNTER 2022-07-20 16:40 | Emergency (ER) | payer OTHER ==
[~2022-07-20] VITALS: Ht 162.6 cm; Wt 83.5 kg
[2022-07-20 16:53] VITALS: BP 118/77
[2022-07-20] MEDS ORDERED: NAPR-1704 PO (17:36)
[2022-07-20] MEDS ORDERED: DICL100G5 TP (17:36)
[2022-07-20] MEDS ORDERED: KETOROLAC 30 MG/ML VIAL IM ONE (17:40)
--- NOTE | 2022-07-20 18:00 | NUR ---
Patient discharged with v/s stable. Written and verbal after care instructions given and explained. Patient alert, oriented and verbalized understanding of instructions. Ambulatory with steady gait. All questions addressed prior to discharge. ID band removed. Patient advised to follow up with PMD. Rx of NAPROXEN, DICLOFENAC (SENT) given. Patient educated on indication of medication including possible reaction and side effects. Opportunity to ask questions provided and answered. WORK NOTE
== END 2022-07-20 18:00 | disposition home or self-care (01) ==
LOC: MED 16:40
DX: M75.21 Bicipital tendinitis, right shoulder (principal); E03.9 Hypothyroidism, unspecified; Z79.899 Other long term (current) drug therapy; Z90.49 Acquired absence of other specified parts of digestive tract
CPT/HCPCS: 73030; 96372; 99283; J1885